=== PATIENT | male | born 2000 | race Caucasian/White ===

== ENCOUNTER → 2019-03-10 | Outpatient (CLI) | payer OTHER ==
--- NOTE | 2019-03-10 17:09 | Diagnostic Imaging Report ---
EXAM: WRIST, LEFT, 3 VIEWS OR MORE INDICATION: Fall on outstretched hand. COMPARISON: None. FINDINGS: No fracture or malalignment. No suspicious osteoblastic or lytic lesions. Soft tissue shadows are unremarkable. IMPRESSION: Negative left wrist radiographs. Dictated by: Dictated on workstation # [id number]
== END ==
LOC: RAD 16:45
PROVIDERS: ATTEND Nurse Practitioner Family
DX: M25.532 Pain in left wrist (principal); W19.XXXA Unspecified fall, initial encounter
CPT/HCPCS: 73110